=== PATIENT | female | born 1960 | race Caucasian/White ===

== ENCOUNTER 2018-12-21 11:46 | Emergency (ER) | payer OTHER ==
[2018-12-21] MEDS ORDERED: Fluorescein Sodium TOPICAL* 1 MG TEST STRIP OPHTHALMIC ONE (12:43)
[2018-12-21] MEDS ORDERED: Tetracaine 0.5% OPTH.SOL 4 ML* 1 DROP BTL BOTH EYES ONE (12:43)
--- NOTE | 2018-12-21 13:02 | UC ---
Eye Complaint HPI - HPI Summary HPI Summary: Ms. Bautista started with burning pain in her left eye yesterday after swimming in the [place]. It interfered with her sleep. She woke up with her eye matted shut and has had clear liquid discharge today. - History of Current Complaint Chief Complaint: UCEye Stated Complaint: EYE ISSUE Time Seen by Provider: 12/21/18 12:42 Hx Obtained From: Patient Onset/Duration: Sudden Onset, Lasting Hours Timing: Constant Severity Initially: Moderate Severity Currently: Mild Pain Intensity: 2 Location of Injury: Conjunctiva Character: Sharp - burning Aggravating Factor(s): Nothing Alleviating Factor(s): Nothing Associated Signs And Symptoms: Positive: Drainage (Clear) Related History: Other - No contacts - Allergies/Home Medications Allergies/Adverse Reactions: Allergies Allergy/AdvReac Type Severity Reaction Status Date / Time No Known Allergies Allergy Verified 12/21/18 12:38 Home Medications: Home Medications Cyclobenzaprine TAB* [Flexeril 10 MG TAB*] 1 tab PO QPM PRN 12/21/18 [History Confirmed 12/21/18] PMH/Surg Hx/FS Hx/Imm Hx Previously Healthy: Yes - Surgical History Surgical History: Yes Surgery Procedure, Year, and Place: ankle. hernia - Social History Alcohol Use: Occasionally Substance Use Type: None Smoking Status (MU): Light Every Day Tobacco Smoker Amount Used/How Often: 1/2ppd Review of Systems All Other Systems Reviewed And Are Negative: Yes Constitutional: Positive: Negative Skin: Positive: Negative Eyes: Positive: Drainage, Eye Redness. Negative: Blurred Vision, Diplopia, Photophobia Physical Exam - Summary Physical Exam Summary: She appears to have a conjunctivitis. I can't tell whether this is allergic or infectious and we will treat her with Cipro drops. Triage Information Reviewed: Yes Appearance: Well-Appearing Vital Signs: Initial Vital Signs Temp 98.8 F 12/21/18 12:34 Pulse 80 12/21/18 12:34 Resp 18 12/21/18 12:34 BP 139/83 12/21/18 12:34 Pulse Ox 96 12/21/18 12:34 Eyes: Positive: Conjunctiva Inflamed - No fluorescein pickup ENT Exam: Normal Neck exam: Normal Eye Complaint Course/Dx - Course Course Of Treatment: She has a conjunctivitis. This may be allergic or infectious and I'm going to treat her with Cipro drops. - Differential Dx/Diagnosis Provider Diagnosis: Conjunctivitis Discharge - Sign-Out/Discharge Documenting (check all that apply): Patient Departure All imaging exams completed and their final reports reviewed: No Studies - Discharge Plan Condition: Stable Disposition: HOME Patient Education Materials: Conjunctivitis (ED) Referrals: No Primary Care Phys,NOPCP [Primary Care Provider] - Reid Yu MD [Medical Doctor] - Additional Instructions: Please follow up with Dr. Yu if you are worsening or not improving in the next 3-4 days. - Billing Disposition and Condition Condition: STABLE Disposition: Home
== END 2018-12-21 13:05 | disposition home or self-care (01) ==
LOC: UCEAST 11:46
DX: H10.9 Unspecified conjunctivitis (principal); F17.210 Nicotine dependence, cigarettes, uncomplicated
CPT/HCPCS: 99202; A9270-GY; G0463